=== PATIENT | female | born 1945 | race Caucasian/White ===

== ENCOUNTER → 2016-12-08 | Outpatient (CLI) | payer MEDICARE, BC ==
[~2016-12-08] MED LIST: 3N1 COMMODE MC; ASPI325T32 PO; ATOR20TA65 PO; BEN25 PO; BUPR300T36 PO; CHLO25TA13 PO; CPM MC; DILT300C PO; DOCU-144 PO; DULR PR; GABA300S PO; LOSA50TA6 PO; NA P133E3 PR; OXY5 PO; PROZLIQ PO; RANI150T5 PO; THYROID NP PO; UDMOM PO; ULT50 PO; WALK1EAC23 MC
--- NOTE | 2016-12-08 12:28 | RADRPT ---
PROCEDURE: Left knee radiographs. CLINICAL INDICATION: Left knee pain. Postop. TECHNIQUE: Three views. Weight bearing. Frontal, lateral, and patellar view. COMPARISON: No prior studies are available for comparison. FINDINGS: There is no fracture or dislocation. Anterior skin geri and surgical drain have been removed. There is a left knee total arthroplasty which appears satisfactory. There is no lytic or blastic lesion. There is no joint effusion. IMPRESSION: 1. Satisfactory postoperative appearance of the left knee. RPTAT: QQ .Fortino Dunbar MD, MD Date Time Electronically viewed and signed by .Fortino Dunbar MD, MD on 12/08/2016 12:28 .R/
--- NOTE | 2016-12-08 22:37 | HKNOTE ---
DATE OF SERVICE: 12/08/2016 INTERVAL HISTORY: The patient presents today for a followup evaluation on her left knee. She is now approximately 6 months status post left total knee arthroplasty. She is doing well overall. She is happy overall with the surgery and states the pain she had prior is completely resolved. She is walking and doing her normal activities of daily living. She denies any fevers or chills. She has her antibiotic prescription to take prior to any dental work. She presents today for a 6 month followup evaluation. PHYSICAL EXAMINATION: GENERAL: On exam today, she has been oriented x4, and in no acute distress. She is ambulating with a normal gait. EXTREMITIES: Exam of the left knee demonstrates range of motion, 0 - 125 degrees. Varus and valgus forces are stable. Incision is well healed. There is no erythema or warmth. Compartments are soft. She is neurovascularly intact distally. IMAGING: X-rays of the left knee were obtained today and reviewed by me. They show good anatomic location of the femoral and tibial components. There is no evidence of loosening or fractures. ASSESSMENT: Doing well, 6 months status post left total knee arthroplasty. DISCUSSION: The patient is doing very well overall and is very happy with her knee thus far. I did remind the patient to take antibiotics prior to any dental procedures. She has a prescription already. She is able to ambulate and continue with her normal activities of daily living. If she has any concerns she will call the office. We will see her back in 6 months for her 1 year followup. We will obtain some x-rays at that time. Dictated By: LUCITA SHARP for NICOLAS HARPER/RACHANA Conf#: [id number] DID#: [id number] MTDD
== END | disposition home or self-care (01) ==
LOC: HKI 10:19
PROVIDERS: ATTEND Orthopaedic Surgery
DX: Z47.1 Aftercare following joint replacement surgery (principal); Z96.652 Presence of left artificial knee joint

== ENCOUNTER → 2017-06-08 | Outpatient (CLI) | payer MEDICARE, BC ==
[~2017-06-08] MED LIST changes: +BISA10SU75 PR; -DULR PR; -OXY5 PO; +OXYC-481 PO; +TRAM50TA2 PO; -ULT50 PO
--- NOTE | 2017-06-08 15:29 | RADRPT ---
PROCEDURE: Left knee radiographs. CLINICAL INDICATION: Left knee pain. Postop. TECHNIQUE: Three views. Weight bearing. Frontal, lateral, and patellar view. COMPARISON: 12/08/2016. FINDINGS: There is no fracture or dislocation. The soft tissues are normal. There is a total left knee arthroplasty which appears satisfactory. There is no lytic or blastic lesion. There is no joint effusion. IMPRESSION: 1. Satisfactory postoperative appearance of the left knee. RPTAT: QQ .Fortino Dunbar MD, MD Date Time Electronically viewed and signed by .Fortino Dunbar MD, on 06/08/2017 15:29 .R/
== END | disposition home or self-care (01) ==
LOC: HKI 10:20
PROVIDERS: ATTEND Orthopaedic Surgery
DX: Z47.89 Encounter for other orthopedic aftercare (principal); Z96.652 Presence of left artificial knee joint
CPT/HCPCS: 73562; G0463